=== PATIENT | male | born 1990 | race Caucasian/White ===

== ENCOUNTER 2025-09-21 00:17 | Emergency (ER) | payer SELFPAY ==
[2025-09-21 00:47] VITALS: BP 133/76
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
[2025-09-21] MEDS: MOTRIN 600 MG PO (04:11)
[2025-09-21] MEDS: ADACEL 0.5 ML IM (04:12)
== END 2025-09-21 05:00 | disposition home or self-care (01) ==
LOC: EMR 00:17
PROVIDERS: EMERGENCY PHYSICIAN Emergency Medicine
DX: S01.81XA Laceration without foreign body of other part of head, initial encounter (principal); S09.8XXA Other specified injuries of head, initial encounter; V43.52XA Car driver injured in collision with other type car in traffic accident, initial encounter; Z23 Encounter for immunization
CPT/HCPCS: 90471; 12011; 99283; 90715